=== PATIENT | female | born 1940 ===

== ENCOUNTER 2021-11-04 12:09 | Outpatient (REF) | payer MEDICARE, SELFPAY ==
[2021-11-04 15:35] LABS: Abs Immature Grans 0.01 10^3/uL (0.0-0.06); Absolute Basophil Count 0.04 10^3/uL (0.0-0.2); Absolute Eosinophil Count 0.16 10^3/uL (0.0-0.7); Absolute Lymphocyte Count 1.08 10^3/uL (1.2-3.4); Absolute Monocyte Count 0.34 10^3/uL (0.1-0.8); Absolute Neutrophil Count 2.72 10^3/uL (1.2-6.7); Basophils % 0.9; Eosinophils % 3.7; HCT 44.5 % (36.0-46.0); HGB 14.8 g/dL (11.2-15.7); Immature Grans % 0.2; Lymphocytes % 24.8; MCH 31.1 pg (27.0-33.0); MCHC 33.3 % (32.0-36.0); MCV 94 fL (80-95); MPV 11.9 fL (8.0-11.0); Monocytes % 7.8; Neutrophils % 62.6; Platelet Count 228 10^3/uL (130-400); RBC 4.76 10^6/uL (3.93-5.22); RDW 12.4 % (11.7-14.6); RDW-SD 42.9 fL; WBC 4.35 10^3/uL (4.4-10.8)
[2021-11-04 15:57] LABS: ALT 29 U/L (14-59); AST 20 U/L (15-37); Alkaline Phosphatase 88 U/L (46-116); Anion Gap 8.1 mmol/L (3-11); BUN 18 mg/dL (7-18); Bilirubin, Total 0.5 mg/dL (0.2-1.0); CO2 28.9 mmol/L (21.0-32.0); Calcium 9.4 mg/dL (8.5-10.1); Chloride 102 mmol/L (98-107); Estimated GFR 53.48 (mL/min/1.73m2); Glucose 100 mg/dL (74-106); Potassium 4.6 mmol/L (3.5-5.1); Sodium 139 mmol/L (136-145); TSH (W/Ref FT4) 2.21 uIU/mL (0.36-3.74)
== END 2021-11-04 12:10 | disposition home or self-care (01) ==
LOC: LBN 12:09
PROVIDERS: Visit Provider Nurse Practitioner Family
DX: R53.83 Other fatigue (principal)
CPT/HCPCS: 80053; 84443; 85025